=== PATIENT | female | born 1990 | race Caucasian/White ===

== ENCOUNTER → 2018-10-17 | Outpatient (CLI) | payer MEDICAID ==
--- NOTE | 2018-10-17 16:37 | RADIOLOGY REPORT (SQ) ---
EXAM DESCRIPTION: U/S OB TRANSVAGINAL W/O DOP COMPLETED DATE/TIME: 10/17/2018 4:25 pm REASON FOR STUDY: NO HEARTBEAT COMPARISON: None. TECHNIQUE: Transvaginal and transabdominal static and realtime grayscale images acquired of the pelv is. Additional selected spectral and color Doppler images recorded. All images stored on PACs. bHCG: Not available CLINICAL DATES: None available LIMITATIONS: None. FINDINGS: An intrauterine gestational sac is present, markedly enlarged, 9 x 3 x 4 cm in size. With in the gestational sac, an embryo is present without cardiac activity on color flow, grayscale, or M- mode Doppler. [place]-rump length of the embryo generates an age of 8 weeks 2 days. This is embryo de mise. Report called to Jane Greer CNM at the [facility] Department, 1625 hours 10/17/2018. UTERUS: No masses. No anomalies. Uterus is 11 x 5 x 10 cm CERVICAL LENGTH: 5 cm Closed. RIGHT ADNEXA: Normal ovary with normal vascular flow. Right ovary 3.2 x 3.3 x 2 cm in size No adnexal free fluid. No adnexal masses. LEFT ADNEXA: Left ovary and adnexa not well seen due to bowel gas. FREE FLUID: None. OTHER: No other significant finding. IMPRESSION: Embryo demise EGA 8 weeks 2 days Trimester of : First - 0 to 13 weeks. COMMENT: Pertinent findings on the imaging study reported as a CRITICAL RESULT to JANE venegas t16:25 on 10/17/2018. Category of Critical Result: Embryo demise TECHNICAL DOCUMENTATION: JOB ID: [id number] [email or web address] Rights Reserved Reading location - IP/workstation name: [facility] [facility] [email or web address]
== END ==
LOC: RAD 15:28
PROVIDERS: ATTEND Midwife
DX: O36.8390 Maternal care for abnormalities of the fetal heart rate or rhythm, unspecified trimester, not applicable or unspecified (principal)
CPT/HCPCS: 76817

== ENCOUNTER 2020-05-05 11:22 | Outpatient (CLI) | payer OTHER, MEDICAID | END 2020-05-05 12:29 | disposition home or self-care (01) | LOC: LC 11:22 | PROVIDERS: ATTEND Obstetrics & Gynecology | DX: Z34.93 Encounter for supervision of normal pregnancy, unspecified, third trimester (principal) | CPT/HCPCS: 59025 ==

== ENCOUNTER 2020-06-13 12:26 | Outpatient (CLI) | payer OTHER, MEDICAID ==
--- NOTE | 2020-06-13 13:22 | Non Stress Test Report ---
Non Stress Test Datetime Report Generated by CPN: 06/13/2020 13:22 DEMOGRAPHIC Test Number: 1 EGA NST: 40.5 EGA NST: 35.1 INDICATION Indication for Study (NST) Other: repeat from [facility]- subutex Indication for Study (NST) Other: repeat NST VITAL SIGNS Temperature - NST: 98.2 Temperature - NST: 99.6 Pulse - NST: 92 Pulse - NST: 76 RESP - NST: 17 RESP - NST: 16 NBPSYS NST: 123 NBPSYS NST: 109 NBPDIA NST: 75 NBPDIA NST: 64 MONITORING Monitor Explained: Monitor Explained; Test Explained; Patient Verbalized Understanding Time on Monitor: 06/13/2020 13:00 Time on Monitor: 05/05/2020 11:49 Time off Monitor: 06/13/2020 13:20 Time off Monitor: 05/05/2020 12:24 NST Duration: 20 NST Duration: 35 NST INTERVENTIONS NST Interventions: PO Hydration NST Interventions: PO Hydration; Reposition Patient Physician Notified NST: Madonna Lopez CNM Physician Notified NST: Dr Hayden BABY A: [id number] BABY A Movement : Present Movement : Present Contraction Frequency : rare Contraction Frequency : 0 FHR Baseline : 130 FHR Baseline : 125 Accelerations : 15X15 Accelerations : 15X15 Decelerations : None Decelerations : None Variability : Moderate 6-25bpm Variability : Moderate 6-25bpm NST Review: Meets Criteria for Reactive NST NST Review: Meets Criteria for Reactive NST NST Review and Verified By : FIDELIA Scott NST Results: Reactive NST Results: Reactive NST COMMENTS NST Comments: CNM on unit reviewing FHT strip NST REPORT Report Trigger: Send Report
== END 2020-06-13 13:32 | disposition home or self-care (01) ==
LOC: LC 12:26
PROVIDERS: ATTEND Obstetrics & Gynecology Gynecology
DX: O48.0 Post-term pregnancy (principal); Z3A.40 40 weeks gestation of pregnancy; Z88.1 Allergy status to other antibiotic agents
CPT/HCPCS: 59025

== ENCOUNTER 2020-06-14 16:08 | Inpatient (IN) | payer OTHER, MEDICAID ==
[2020-06-14] MEDS ORDERED: OXYTOCIN/0.9 % SODIUM CHLORIDE 30 UNIT/500 ML RTUINJ IV PRN (16:27)
--- NOTE | 2020-06-14 16:36 | Admission Physical ---
Datetime Report Generated by CPN: 06/14/2020 16:36 CURRENT ADMISSION Chief Complaint: Scheduled Induction of Labor Indication for Induction: Post Dates; Other Indication for Induction- Other: subutex 16mg daily Admit Impression : Induction of Labor Admit Plan: Initiate Labor Induction Protocol ALLERGIES Medication Allergies: Yes Medication Allergies: Sulfa (Sulfonamide Antibiotics) (06/14/2020) OBSTETRICAL HISTORY EDC: 06/08/2020 00:00 : 6 Para: 2 Term: 1 : 1 SAB: 3 IAB: 0 Ectopic: 0 Livin Cesareans: 0 VBACs: 0 Multiple Births: 0 PTL/PROM: Yes MEDICAL HISTORY Hosp/Surgery: Yes Medical History Comments: childbirth, umbilical hernia, PHYSICAL EXAM General: Normal HEENT: Deferred Neurologic: Normal Thyroid: Deferred Heart: Normal Lungs: Normal Breast: Deferred Back: Normal Abdomen: Normal Genitourinary Exam: Normal Extremities: Normal DTRs: Deferred Pelvic Type: Adequate Vital Signs: Reviewed VAGINAL EXAM Dilatation: 3 Effacement: 60 Station: -2 MEMBRANES Membranes: Intact FETUS A EGA: 40.6 Monitoring: External US FHR- Baseline: 140 Variability: Moderate 6-25bpm Presentation: Vertex Admit Comment: Tobacco use daily brought nicotine patch with her undecided on epidural INFORMED CONSENT Assignment: Neisha Wilhelm MD Signature: with User ID: Richard : with User ID: Richard
[2020-06-14 17:13] LABS: ABSOLUTE EOSINOPHILS # (AUTO) 0.1 10^3/uL (0.0-0.6); ABSOLUTE LYMPHOCYTES (AUTO) 2.6 10^3/uL (0.5-4.7); ABSOLUTE MONOCYTES (AUTO) 0.7 10^3/uL (0.1-1.4); BASOPHILS % (AUTO) 0.2 % (0-2); HEMATOCRIT 35.4 % (36.0-47.0); HEMOGLOBIN 12.5 g/dL (12.0-15.5); MEAN CORPUSCULAR HGB CONC 35.4 g/dL (32.0-36.0); MEAN CORPUSCULAR VOLUME 93 fl (80-97); MONOCYTES % (AUTO) 5.4 % (3-13); PLATELET COUNT 234 10^3/uL (150-450); RED BLOOD COUNT 3.79 10^6/uL (3.72-5.28); RED CELL DISTRIBUTION WIDTH 13.4 % (11.5-14.0); SEGMENTED NEUTROPHILS % (AUTO) 72.4 % (42-78); TOTAL CELLS COUNTED % (AUTO) 100 %; WHITE BLOOD COUNT 12.4 10^3/uL (4.0-10.5)
[2020-06-14] MEDS ORDERED: MISOPROSTOL 0.2 MG TABLET ONE (17:25)
[2020-06-14] MEDS ORDERED: LIDOCAINE 1% INJ-PF (10 MG/ML) 30 ML SDV ONE (17:25)
[2020-06-14] MEDS ORDERED: OXYTOCIN 10 UNIT/ML VIAL ONE (17:25)
[2020-06-14] MEDS ORDERED: OXYTOCIN/0.9 % SODIUM CHLORIDE 30 UNIT/500 ML RTUINJ ONE (17:25)
[2020-06-14 17:27] LABS: APPEARANCE,URINE SLIGHTLY-CLOUDY; BILIRUBIN,URINE NEGATIVE (NEGATIVE); COLOR,URINE YELLOW; GLUCOSE, URINE NEGATIVE (NEGATIVE); KETONES,URINE NEGATIVE (NEGATIVE); LEUKOCYTE ESTERASE,URINE NEGATIVE (NEGATIVE); NITRITE,URINE NEGATIVE (NEGATIVE); PROTEIN,URINE NEGATIVE (NEGATIVE); URINE SPECIFIC GRAVITY 1.002; UROBILINOGEN,URINE NEGATIVE mg/dL (<2.0)
[2020-06-14] MEDS: RINGERS SOLUTION,LACTATED 1,000 ML IV PRN (17:38)
[2020-06-14 18:24] LABS: URINE AMPHETAMINES SCREEN NEGATIVE; URINE BARBITURATES SCREEN NEGATIVE; URINE BENZODIAZEPINES SCREEN NEGATIVE; URINE COCAINE SCREEN NEGATIVE; URINE MARIJUANA (THC) SCREEN NEGATIVE; URINE METHADONE SCREEN NEGATIVE; URINE PHENCYCLIDINE SCREEN NEGATIVE
[2020-06-15] MEDS ORDERED: DINOPROSTONE 10 MG VAGINAL INSERT.SR PV ONE (03:22)
[2020-06-15] MEDS ORDERED: DINOPROSTONE 10 MG VAGINAL INSERT.SR ONE (03:25)
[2020-06-15] MEDS: RINGERS SOLUTION,LACTATED 1,000 ML IV PRN (07:51)
--- NOTE | 2020-06-15 09:20 | L&D Progress Notes ---
PROGRESS NOTES Datetime Report Generated by CPN: 06/15/2020 09:20 PROGRESS NOTE Impression Other: IUP @ 41wga-IOL Procedures: Artificial ROM; Sterile Vag Exam Plan: Induction Informed Consent Obtained: Vaginal Delivery; Induction of Labor; Risks, Benefits and Alternatives Discussed Vital Signs : Reviewed; Within Normal Limits Comment: S: comfortable, does not have any pain at this time O: VSS, Cat I tracing, cervix as stated A: IUP@ 41wga- IOL for post dates, initially pitocin induction then switched to cervidil last night AROM- attempted, no fluid out, pt tolerated well P: cervidil removed, continue IOL- will switch back to pitocin at this time after hour break from cervidil, pt asked questions and verbalized understanding VAGINAL EXAM Dilatation: 3 Effacement: 60 Station: -2 LAST VAGINAL EXAM-NURSING Nursing Exam Dilitation: 4-5 Nursing Exam Effacement: Long Nursing Exam Station: -3 MEMBRANES Membranes: Ruptured Amniotic Fluid Color: no fluid out FETUS A Monitoring: External US FHR Category: Category I : 40.6 Presentation: Vertex SIGNATURE SIGNATURE: [id number] Assignment: Tatyana Hayden MD Signature: with User ID: Morris : with User ID: Morris
[2020-06-15] MEDS: BUPRENORPHINE HCL 2 MG SUBLINGUAL TABLET SL SCH (10:40)
--- NOTE | 2020-06-15 13:35 | L&D Progress Notes ---
PROGRESS NOTES Datetime Report Generated by CPN: 06/15/2020 13:35 PROGRESS NOTE Impression Other: IUP @ 41wga-IOL Procedures: Artificial ROM; Sterile Vag Exam Plan: Continue Present Management; Induction Informed Consent Obtained: Vaginal Delivery; Induction of Labor; Risks, Benefits and Alternatives Discussed Vital Signs : Reviewed; Within Normal Limits Comment: S: comfortable, breathing with contractions, does not want epidural at this time O: VSS, Cat I tracing with variables after AROM, pit @ 10mu/min A: IUP @ 41w- IOL for post dates progressing well AROM- moderate amount of clear fluid, pt tolerated well P: continue IOL, epidural prn, anticipate delivery VAGINAL EXAM Dilatation: 3 Effacement: 60 Station: -2 LAST VAGINAL EXAM-NURSING Nursing Exam Dilitation: 6.0 Nursing Exam Effacement: 50 Nursing Exam Station: -2 MEMBRANES Membranes: Ruptured Amniotic Fluid Color: Clear FETUS A Monitoring: External US FHR Category: Category I : 40.6 Presentation: Vertex SIGNATURE SIGNATURE: [id number] Assignment: Tatyana Hayden MD Signature: with User ID: Morris : with User ID: Morris
[2020-06-15] MEDS ORDERED: EPHEDRINE SULFATE INJ 50 MG/1 ML AMPULE ONE (14:45)
[2020-06-15] MEDS ORDERED: FENTANYL/BUPIVACAINE/NS/PF 300 MCG/150 ML RTUINJ EPI ONE (14:45)
[2020-06-15] MEDS ORDERED: ROPIVACAINE HCL 0.2% INJ/PF (2 MG/ML) 20 ML SDV ONE (14:46)
--- NOTE | 2020-06-15 15:22 | L&D Progress Notes ---
PROGRESS NOTES Datetime Report Generated by CPN: 06/15/2020 15:21 PROGRESS NOTE Impression Other: IUP @ 41wga-IOL Procedures: Sterile Vag Exam Plan: Continue Present Management Informed Consent Obtained: Vaginal Delivery; Induction of Labor; Risks, Benefits and Alternatives Discussed Vital Signs : Reviewed; Within Normal Limits Comment: S: breathing and crying with contractions, desires epidural at this time O:VSS, cervix as stated, cat II tracing, uc q 1.5-2min, pit stopped per RN while she obtains epidural A: IUP @ 41wga IOL secondary to post dates-stable, progressing well P: continue IOL, anticipate delivery, bolus for epidural on going VAGINAL EXAM Dilatation: 3 Effacement: 60 Station: -2 LAST VAGINAL EXAM-NURSING Nursing Exam Dilitation: 8.0 Nursing Exam Effacement: 90 Nursing Exam Station: -1 MEMBRANES Membranes: Ruptured Amniotic Fluid Color: Clear FETUS A Monitoring: External US FHR Category: Category II : 40.6 Presentation: Vertex SIGNATURE SIGNATURE: [id number] Assignment: Tatyana Hayden MD Signature: with User ID: Morris : with User ID: Morris
[2020-06-15] MEDS ORDERED: MAGNESIUM HYDROXIDE SUSP 30 ML UDCUP PO PRN (18:22)
[2020-06-15] MEDS ORDERED: ACETAMINOPHEN 325 MG TABLET PO PRN (18:22)
[2020-06-15] MEDS ORDERED: ZOLPIDEM TARTRATE 5 MG TABLET PO PRN (18:22)
[2020-06-15] MEDS ORDERED: PROMETHAZINE HCL INJ 25 MG/1 ML VIAL IV PRN (18:22)
[2020-06-15] MEDS ORDERED: GLYCERIN/WITCH HAZEL LEAF 1 EACH MED..WIPE TP PRN (18:22)
[2020-06-15] MEDS ORDERED: BENZOCAINE/MENTHOL AEROSOL SPRAY 56 ML TOP PRN (18:22)
[2020-06-15] MEDS ORDERED: PROMETHAZINE HCL 25 MG SUPP.RECT PR PRN (18:22)
[2020-06-15] MEDS ORDERED: PROMETHAZINE HCL 25 MG TABLET PO PRN (18:22)
[2020-06-15] MEDS ORDERED: NA PHOS,M-B/NA PHOS,DI-BA (ADULT) 133 ML ENEMA PR PRN (18:22)
[2020-06-15] MEDS ORDERED: DIPHENHYDRAMINE HCL 25 MG CAPSULE PO PRN (18:22)
[2020-06-15] MEDS ORDERED: PSEUDOEPHEDRINE HCL 30 MG TABLET PO PRN (18:22)
[2020-06-15] MEDS ORDERED: MEASLES,MUMPS&RUBELLA VACC/PF 0.5 ML VIAL SUBCUT PRN (18:22)
[2020-06-15] MEDS ORDERED: ACETAMINOPHEN WITH CODEINE #3 TABLET PO PRN ×2 (18:22)
[2020-06-15] MEDS ORDERED: DIPH/PERTUSS(ACELL)/TETANUS VAC/PF 0.5 ML SYR (>=10YO) IM PRN (18:22)
[2020-06-15] MEDS ORDERED: OXYTOCIN/0.9 % SODIUM CHLORIDE 30 UNIT/500 ML RTUINJ IV PRN (18:22)
[2020-06-15] MEDS ORDERED: ACETAMINOPHEN 650 MG SUPP.RECT PR PRN (18:22)
[2020-06-15] MEDS ORDERED: DIBUCAINE 1% OINTMENT 28 GM TP PRN (18:22)
[2020-06-15] MEDS ORDERED: IBUPROFEN 800 MG TABLET ONE (19:00)
[2020-06-15] MEDS ORDERED: FERROUS SULFATE 325 MG TABLET PO ONE (19:00)
[2020-06-15] MEDS ORDERED: DOCUSATE SODIUM 100 MG CAPSULE ONE (19:00)
[2020-06-15] MEDS: IBUPROFEN 800 MG TABLET PO SCH (19:04)
--- NOTE | 2020-06-15 20:37 | Delivery Summary ---
Del Sum A-C Datetime Report Generated by CPN: 06/15/2020 20:37 DELIVERY PERSONNEL DELIVERY PERSONNEL: [id number] Delivery Doctor:: Tatyana Hayden MD Labor and Delivery Nurse:: Linda Meza RNstudent teacher Nurse:: Ivy España RN Student Observers:: Susanne, CHUN student Occupational Therapy Director/JR. SYSTEMS ADMINISTRATOR: Felecia Estrada, ST MATERNAL INFORMATION Delivery Anesthesia: Epidural Medications After Delivery: Pitocin 30 Units in 500ml NS/D5W Delivery QBL: 150 Maternal Complications: None Provider Comments: Called to patients room as she was complete and +2 with urge to push. After short period of pushing she delivered a viable female infant over interact perineum. Tight nuchal x1 , not able to reduce and delivered through. After the head, the shoulders and rest of the body followed easily. Cord clamping delayed 30 seconds as infant was vigorous. After cord doubly clamped and cut, infant to warmer for suctioning. Both Mother and infant stable. LABOR SUMMARY EDC: 06/08/2020 00:00 No. Babies in Womb: 1 Attempted: No Labor Anesthesia: Epidural LABOR INFORMATION Reason for Induction: Post Dates; Other Reason for Induction- Other: Subutex use Onset of Labor: 06/15/2020 08:48 Complete Dilatation: 06/15/2020 17:36 Cervical Ripening Agents: Cervidil Oxytocin: Induction Group B Beta Strep: Negative Antibiotics # of Doses: n/a Name of Antibiotic Given: n/a Steroids Given: None Reason Steroids Not Administered: Not Applicable MEMBRANES Membranes Rupture Method: Artificial Rupture of Membranes: 06/15/2020 13:23 Length of Rupture (hr): 4.72 Amniotic Fluid Color: Clear Amniotic Fluid Amount: Moderate Amniotic Fluid Odor: Normal STAGES OF LABOR Stage 1 hr: 8 Stage 1 min: 48 Stage 2 hr: 0 Stage 2 min: 30 Stage 3 hr: 0 Stage 3 min: 7 Total Time in Labor hr: 9 Total Time in Labor min: 25 VAGINAL DELIVERY Episiotomy: None Other Laceration: Left labial laceraton x2, very superficial and not bleeding. Laceration Repair: Not Applicable Laceration Repair Note: Not needed: hemostatic Sponge Count Correct: Yes Sharps Count Correct: Yes BABY A INFORMATION Delivery Date/Time: 06/15/2020 18:06 Method of Delivery: Vaginal Nurse Controlled Delivery: No Born in Route : No : N/A Forceps: N/A Vacuum Extraction: N/A Shoulder Dystocia : No PRESENTATION/POSITION BABY A Presentation: Cephalic Cephalic Presentation: Vertex Vertex Position: Left Occipital Anterior Breech Presentation: N/A PLACENTA INFORMATION BABY A Placenta Delivery Time : 06/15/2020 18:13 Placenta Method of Delivery: Spontaneous Placenta Status: Delivered SCORES BABY A Heart Rate 1 min: >100 bpm Resp Effort 1 min: Good Cry Reflex Irritability 1 min: Cough or Sneeze or Pulls Away Muscle Tone 1 min: Active Motion Color 1 min: Blue/Pale Resuscitation Effort 1 min: Tactile Stimulation SCORE 1 MIN: 8 Heart Rate 5 min: >100 bpm Resp Effort 5 min: Slow, Irregular Reflex Irritability 5 min: Cough or Sneeze or Pulls Away Muscle Tone 5 min: Active Motion Color 5 min: Body [place], Extremities Blue Resuscitation Effort 5 min: Tactile Stimulation SCORE 5 MIN: 8 Heart Rate 10 min: >100 bpm Resp Effort 10 min: Good Cry Reflex Irritability 10 min: Cough or Sneeze or Pulls Away Muscle Tone 10 min: Active Motion Color 10 min: Body [place], Extremities Blue Resuscitation Effort 10 min: N/A SCORE 10 MIN: 9 INFANT INFORMATION BABY A Gestational Age at Delivery: 41.0 Gestational Status: Late Term- 41- 41.6 Weeks Outcome : Liveborn Infant Condition : Stable Sex: Female IDENTIFICATION BABY A Verification Date/Time: 06/15/2020 18:53 ID Band Number: [id number] Mother's Name Verified: Yes RN Verifying : Tyler FIDELIA Additional Verifying Personnel: Madonna Meza RN WEIGHT/LENGTH BABY A Infant Birthweight (gm): 3150 Weight (lb): 6 Infant Weight (oz): 15 Infant Length (in): 19.75 Infant Length (cm): 50.17 CORD INFORMATION BABY A No. Cord Vessels: 3 Nuchal Cord : Around Neck x1, Tight Cord Blood Taken: Yes-For Storage (Mom's Blood type +) Infant Suction: Mouth; Nose ASSESSMENT BABY A Complications: None Physical Findings at Delivery: Within Normal Limits Respirations: Intercostal Retractions Skin to Skin: Yes Transferred To: Remains with Mother BABY B INFORMATION : N/A SIGNATURES Signature: with User ID: [email or web address] : with User ID: Marce : I was personally available for consultation and serving as supervising physician for the MLP.
--- NOTE | 2020-06-15 20:37 | Birth Certificate Data ---
Cert Data Datetime Report Generated by CPN: 06/15/2020 20:37 CERTIFICATE DATA Delivery Provider: Tatyana Hayden MD (05/05/2020 11:43:Linda Meza RN) 47a. Care: Yes (05/05/2020 11:43:Raquel Guillen RN) 47b. Date of First Visit: 10/27/2019 00:00 (05/05/2020 11:43:Raquel Guillen RN) 47c. Date of Last Visit: 06/13/2020 00:00 (05/05/2020 11:43:Raquel Guillen RN) 47d. Number of Visits: 25 (05/05/2020 11:43:Raquel Guillen RN) 48a. Number of Prev Live Births: 2 (05/05/2020 11:43:Raquel Guillen RN) 48b. Now Livin (05/05/2020 11:43:Christiana Gomes RN) 48c. Live Births Now : 0 (05/05/2020 11:43:QS system process) 48d. Date of Last Live : 01/28/2017 00:00 (05/05/2020 11:43:Kimmie Hansen RN) 48e. Losses: 3 (05/05/2020 11:43:Raquel Guillen RN) 48f. Date of Last Preg Loss: 10/10/2018 00:00 (05/05/2020 11:43:Kimmie Hansen RN) RISK FACTORS IN THIS 49a. Diabetes: No (05/05/2020 11:43:Kimmie Hansen RN) 49b. Hypertension: No (05/05/2020 11:43:Kimmie Hansen RN) Type of Hypertension: Chronic (05/05/2020 11:43:Kimmie Hansen RN) 49c. Previous Births: 1 (05/05/2020 11:43:Christiana Gomes RN) 49d. Stillborns: No (05/05/2020 11:43:Kimmie Hansen RN) 49d. IUGR: No (05/05/2020 11:43:Kimmie Hansen RN) 49e. Infertility Treatment: No (05/05/2020 11:43:Kimmie Hansen RN) 49f. Previous Cesareans: 0 (05/05/2020 11:43:Raquel Guillen RN) Mother's Height 50b. Height Inches: 65 (05/05/2020 11:36:QS system process) Mother's Weight 51a. Pre- Weight (lbs): 169 (05/05/2020 11:43:Raquel Guillen RN) 51b. Weight at Delivery (lbs): 189 (06/15/2020 18:17:QS system process) 52. Dt Last Normal Menses Began: 08/24/2019 00:00 (05/05/2020 11:43:Raquel Guillen RN) Infections Present/Treated 53a. Gonorrhea: No (05/05/2020 11:43:Kimmie Hansen RN) Results this Hospital Visit : Negative (05/05/2020 11:43:Raquel Guillen RN) 53b. Syphilis: No (05/05/2020 11:43:Kimmie Hansen RN) Results this Hospital Visit: NONREACTIVE (06/14/2020 16:59:QS system process) 53c. Chlamydia: No (05/05/2020 11:43:Kimmie Hansen RN) Results this Hospital Visit: Negative (05/05/2020 11:43:Raquel Guillen RN) 53d. Hepatitis B: No (05/05/2020 11:43:Kimmie Hansen RN) Results this Hospital Visit: Negative (05/05/2020 11:43:Raquel Guillen RN) 53e. Hepatitis C: Negative (05/05/2020 11:43:Raquel Guillen RN) 53h. Mother Tested for HBsAG: Yes (05/05/2020 11:43:Raquel Guillen RN) 53i. Date Tested: 10/27/2019 00:00 (05/05/2020 11:43:Raquel Guillen RN) 53j. Test Result: Negative (05/05/2020 11:43:Raquel Guillen RN) Obstetric Procedures 54a, b, c. Obstetric Procedures: Ultrasound; NST (05/05/2020 11:43:Kimime Hansen RN) Cigarette Smoking Cigarette Smoking: Current Everyday Smoker. [id number] (05/05/2020 11:43:Kimmie Hansen RN) 55a. 3 Months Before Preg - Ci (05/05/2020 11:43:Kimmie Hansen RN) 55a. Packs: 0 (05/05/2020 11:43:Kimmie Hansen RN) 55b. 1st Trimester of Preg- Ci (05/05/2020 11:43:Kimmie Hansen RN) 55b. Packs: 0 (05/05/2020 11:43:Kimmie Hansen RN) 55c. 2nd Trimester of Preg- Ci (05/05/2020 11:43:Kimmie Hansen RN) 55c. Packs: 0 (05/05/2020 11:43:Kimmie Hansen RN) 55d. 3rd Trimester of Preg- Ci (05/05/2020 11:43:Kimmie Hansen RN) 55d. Packs: 0 (05/05/2020 11:43:Kimmie Hansen RN) Onset of Labor 56a. PROM >12 Hrs: 4.72 (05/05/2020 11:43:QS system process) 56b. Precipitous Labor <3 Hrs: 9 (05/05/2020 11:43:QS system process) 56c. Prolonged Labor > 20 Hrs: 9 (05/05/2020 11:43:QS system process) 57a. Induction of Labor: Induction (05/05/2020 11:43:Linda Meza RN) 57a. Induction of Labor: Cervidil (06/15/2020 03:33:Dana Chandler RN) 57c. Non-Vertex Presentation A: Vertex (05/05/2020 11:43:Linda Meza RN) 57d. Steroids - Lung Mat: None (05/05/2020 11:43:Linda Meza RN) 57d. Steroids - Lung Mat: Not Applicable (05/05/2020 11:43:Linda Meza RN) 57f. Mat [place] or Temp >100.4: 98.2 (05/05/2020 11:43:Linda Meza RN) 57g. Moderate/Heavy Meconium: Clear (06/15/2020 13:23:Linda Meza RN) 57i. Epidural/Spinal Anesthesia: Epidural (05/05/2020 11:43:Linda Meza RN) Method of Delivery 58a. Forceps - Unsuccessful A: N/A (05/05/2020 11:43:Linda Meza RN) 58b. Vacuum - Unsuccessful A: N/A (05/05/2020 11:43:Linda Meza RN) 58c. Presentation at 58c. Presentation at - A : Vertex (05/05/2020 11:43:Linda Meza RN) 58c. Presentation at - A : N/A (05/05/2020 11:43:Linda Meza RN) 58c. Presentation at - A : Cephalic (06/14/2020 16:31:Kimmie Hansen RN) Final Route and Method of Del 58d. Baby A Route/Delivery: Vaginal (06/15/2020 18:06:Linda Meza RN) 58e. Trial of Labor Attempted: No (05/05/2020 11:43:Linda Meza RN) 58e. Trial of Labor Attempted A: N/A (05/05/2020 11:43:Linda Meza RN) 58e. Trial of Labor Attempted B: N/A (05/05/2020 11:43:Linda Feuston, RN) Maternal Morbidity 59b. 3rd or 4th Degree Lacs: Left labial laceraton x2, very superficial and not bleeding. (05/05/2020 11:43:Tatyana Hayden, MD) Birthweight Baby A: 3150 (05/05/2020 11:43:Makenzie Tam RN) 60a. Pounds : 6 (05/05/2020 11:43:QS system process) 60b. Ounces: 15 (05/05/2020 11:43:QS system process) 61. GA at Delivery Baby A: 41.0 (05/05/2020 11:43:Linda Derrick, RN) : Late Term- 41- 41.6 Weeks (05/05/2020 11:43:QS system process) 62a. 5 Minute Baby A: 8 (05/05/2020 11:43:QS system process) 62b. 10 Minute Baby A: 9 (05/05/2020 11:43:QS system process)
[2020-06-15] MEDS: FAMOTIDINE 20 MG TABLET PO SCH (22:23)
[2020-06-16] MEDS: IBUPROFEN 800 MG TABLET PO SCH ×3 (02:03→17:34)
[2020-06-16 07:36] LABS: HEMATOCRIT 34.6 % (36.0-47.0); HEMOGLOBIN 12.1 g/dL (12.0-15.5); MEAN CORPUSCULAR HEMOGLOBIN 32.8 pg (27.0-33.4); MEAN CORPUSCULAR HGB CONC 34.9 g/dL (32.0-36.0); MEAN CORPUSCULAR VOLUME 94 fl (80-97); PLATELET COUNT 222 10^3/uL (150-450); RED BLOOD COUNT 3.68 10^6/uL (3.72-5.28); RED CELL DISTRIBUTION WIDTH 13.6 % (11.5-14.0); WHITE BLOOD COUNT 17.3 10^3/uL (4.0-10.5)
[2020-06-16] MEDS: BUPRENORPHINE HCL 2 MG SUBLINGUAL TABLET SL SCH (09:47)
[2020-06-16] MEDS: SENNOSIDES/DOCUSATE 8.6-50 MG 1 EACH TABLET PO SCH (09:48)
[2020-06-16] MEDS: FAMOTIDINE 20 MG TABLET PO SCH ×2 (09:48→21:34)
[2020-06-16] MEDS: PRENATAL VITAMIN W DHA CAPSULE PO SCH (09:49)
[2020-06-16] MEDS: FERROUS SULFATE 325 MG TABLET PO SCH ×2 (09:49→17:34)
[2020-06-16] MEDS: DOCUSATE SODIUM 100 MG CAPSULE PO SCH ×2 (09:50→17:34)
--- NOTE | 2020-06-16 11:57 | PDOC PROGRESS REPORT ---
Subjective-OB Progress Note for:: 06/16/20 Subjective: reports bleeding slowing, pain controlled with current meds. denies needs Physical Exam (OB) Vital Signs: Temp Pulse Resp BP Pulse Ox 97.7 F 88 16 116/83 97 06/16/20 10:00 06/16/20 08:07 06/16/20 08:07 06/16/20 08:07 06/16/20 08:07 Intake & Output 06/15/20 06/16/20 06/17/20 06:59 06:59 06:59 Intake Total 1000 Balance 1000 Weight 86.2 kg - Maternal Morbidity 59. Maternal Morbidity (serious complications experinced by the mother associated with labor and delivery: None of the above - Abdomen Description: Soft Hernia Present: No Fundal Description: Firm, Midline Fundal Height: u/u - u/2 - Abdominal Distension: No distension Tenderness: Nontender - Extremities Lower extremities: Michael's sign - neg Calf: Normal, Nontender Objective-Diagnostic Laboratory: 06/16/20 06:57 06/16/20 06:57 WBC 17.3 H RBC 3.68 L Hgb 12.1 Hct 34.6 L MCV 94 MCH 32.8 MCHC 34.9 RDW 13.6 Plt Count 222 Assessment and Plan(PN) - Time Spent with Patient Time with patient: Less than 15 minutes Medications reviewed and adjusted accordingly: Yes - Disposition Anticipated Discharge Disposition: Home, Self Care Anticipated Discharge Timeframe: within 24 hours
[2020-06-17] MEDS: IBUPROFEN 800 MG TABLET PO SCH ×2 (01:08→10:51)
[2020-06-17 09:10] VITALS: BP 119/78
--- NOTE | 2020-06-17 09:33 | PDOC DISCHARGE SUMMARY ---
Impression - Admit/DC Date/PCP Admission Date/Primary Care Provider: 06/14/20 16:08 Discharge Date: 06/17/20 - Discharge Diagnosis (1) Opioid dependence Is this a current diagnosis for this admission?: Yes (2) Vaginal delivery Is this a current diagnosis for this admission?: Yes (3) Post-dates Is this a current diagnosis for this admission?: Yes (4) Tobacco abuse Is this a current diagnosis for this admission?: Yes - Additional Information Resuscitation Status: Full Code Discharge Diet: Regular Discharge Activity: Balance Activity w/Rest, Pelvic Rest Prescriptions: Ibuprofen [Motrin 800 mg Tablet] 800 mg PO Q8HP PRN #60 tablet PRN Reason: Home Medications: Buprenorphine HCl [Subutex 2 mg Sl Tablet] 16 mg SL DAILY 05/05/20 Pnv 102/Iron/Folate 1/Dss/Dha [Vitafol Fe+ Docusate Combo Pck] 1 each PO DAILY 05/05/20 Ibuprofen [Motrin 800 mg Tablet] 800 mg PO Q8HP PRN #60 tablet 06/17/20 HPI Gestational Age: 40.6 Reason(s) for Admission: Induction of Labor Procedures: NST Intrapartum Procedure(s): Spontaneous Vaginal Delivery Complication(s): Laceration-Labial Laceration-Degree: 1st Hospital Course 59. Maternal Morbidity (serious complications experinced by the mother associated with labor and delivery: None of the above Results Laboratory Results: WBC 17.3 10^3/uL (4.0-10.5) H 06/16/20 06:57 RBC 3.68 10^6/uL (3.72-5.28) L 06/16/20 06:57 Hgb 12.1 g/dL (12.0-15.5) 06/16/20 06:57 Hct 34.6 % (36.0-47.0) L 06/16/20 06:57 MCV 94 fl (80-97) 06/16/20 06:57 MCH 32.8 pg (27.0-33.4) 06/16/20 06:57 MCHC 34.9 g/dL (32.0-36.0) 06/16/20 06:57 RDW 13.6 % (11.5-14.0) 06/16/20 06:57 Plt Count 222 10^3/uL (150-450) 06/16/20 06:57 Lymph % (Auto) 21.0 % (13-45) 06/14/20 16:59 [place] % (Auto) 5.4 % (3-13) 06/14/20 16:59 Eos % (Auto) 1.0 % (0-6) 06/14/20 16:59 Baso % (Auto) 0.2 % (0-2) 06/14/20 16:59 Absolute Neuts (auto) 9.0 10^3/uL (1.7-8.2) H 06/14/20 16:59 Absolute Lymphs (auto) 2.6 10^3/uL (0.5-4.7) 06/14/20 16:59 Absolute Monos (auto) 0.7 10^3/uL (0.1-1.4) 06/14/20 16:59 Absolute Eos (auto) 0.1 10^3/uL (0.0-0.6) 06/14/20 16:59 Absolute Basos (auto) 0.0 10^3/uL (0.0-0.2) 06/14/20 16:59 Seg Neutrophils % 72.4 % (42-78) 06/14/20 16:59 Urine Color YELLOW 06/14/20 16:24 Urine Appearance SLIGHTLY-CLOUDY 06/14/20 16:24 Urine pH 7.0 (5.0-9.0) 06/14/20 16:24 Ur Specific [place] 1.002 06/14/20 16:24 Urine Protein NEGATIVE mg/dL (NEGATIVE) 06/14/20 16:24 Urine Glucose (UA) NEGATIVE mg/dL (NEGATIVE) 06/14/20 16:24 Urine Ketones NEGATIVE mg/dL (NEGATIVE) 06/14/20 16:24 Urine Blood NEGATIVE (NEGATIVE) 06/14/20 16:24 Urine Nitrite NEGATIVE (NEGATIVE) 06/14/20 16:24 Urine Bilirubin NEGATIVE (NEGATIVE) 06/14/20 16:24 Urine Urobilinogen NEGATIVE mg/dL (<2.0) 06/14/20 16:24 Ur Leukocyte Esterase NEGATIVE (NEGATIVE) 06/14/20 16:24 Urine Ascorbic Acid NEGATIVE (NEGATIVE) 06/14/20 16:24 Urine Opiates Screen NEGATIVE 06/14/20 16:24 Urine Methadone Screen NEGATIVE 06/14/20 16:24 Ur Barbiturates Screen NEGATIVE 06/14/20 16:24 Ur Phencyclidine Scrn NEGATIVE 06/14/20 16:24 Ur Amphetamines Screen NEGATIVE 06/14/20 16:24 U Benzodiazepines Scrn NEGATIVE 06/14/20 16:24 Urine Cocaine Screen NEGATIVE 06/14/20 16:24 U Marijuana (THC) Screen NEGATIVE 06/14/20 16:24 RPR NONREACTIVE (NONREACTIVE) 06/14/20 16:59 Blood Type A POSITIVE 06/14/20 16:59 Antibody Screen NEGATIVE 06/14/20 16:59 Plan Plan of Treatment: f/u at [facility] 4 wks Time Spent: Less than 30 Minutes
[2020-06-17] MEDS: DOCUSATE SODIUM 100 MG CAPSULE PO SCH (10:51)
[2020-06-17] MEDS: SENNOSIDES/DOCUSATE 8.6-50 MG 1 EACH TABLET PO SCH (10:51)
[2020-06-17] MEDS: FAMOTIDINE 20 MG TABLET PO SCH (10:51)
[2020-06-17] MEDS: PRENATAL VITAMIN W DHA CAPSULE PO SCH (10:52)
[2020-06-17] MEDS: FERROUS SULFATE 325 MG TABLET PO SCH (10:52)
[2020-06-17] MEDS: BUPRENORPHINE HCL 2 MG SUBLINGUAL TABLET SL SCH (10:52)
[2020-06-17] MEDS ORDERED: INFLUENZA QUAD (6MOS+) 2020-21 VAC 0.5 ML SYR IM ONE (12:30)
[2020-06-18] MEDS ORDERED: INFLUENZA QUAD (6MOS+) 2020-21 VAC 0.5 ML SYR IM ONE (08:00)
== END 2020-06-17 12:34 | disposition home or self-care (01) | DRG 806 ==
LOC: LR 16:08 → 2S 06-15 21:30
PROVIDERS: ADMIT Obstetrics & Gynecology; ATTEND Obstetrics & Gynecology
PROC: 10E0XZZ Delivery of Products of Conception, External Approach (ICD-10-PCS; principal; 2020-06-15)
PROC: 3E02340 Introduction of Influenza Vaccine into Muscle, Percutaneous Approach (ICD-10-PCS; 2020-06-17)
DX: O48.0 Post-term pregnancy (principal); O99.324 Drug use complicating childbirth; Z37.0 Single live birth; F11.20 Opioid dependence, uncomplicated; Z88.2 Allergy status to sulfonamides; Z3A.41 41 weeks gestation of pregnancy; O69.1XX0 Labor and delivery complicated by cord around neck, with compression, not applicable or unspecified; O70.0 First degree perineal laceration during delivery; Z23 Encounter for immunization
CPT/HCPCS: 1967; 36415; 80307; 81005; 85025; 85027; 86592; 86850; 86900; 86901; 90471; 90686; G0008; J0571; J2590; J2795; J3010; J3490